=== PATIENT | female | born 1950 | race African-American/Black ===

== ENCOUNTER 2023-09-29 11:22 | Emergency (ER) | payer OTHER ==
[~2023-09-29] VITALS: Ht 167.6 cm; Wt 90.0 kg
[2023-09-29 11:24] VITALS: O2SAT 99
[2023-09-29 11:44] LABS: BASOPHILS % 0.6 % (0.0-2.0); EOSINOPHILS % 0.7 % (0.0-5.0); HEMOGLOBIN. 13.1 g/dL (12.0-16.0); LYMPHOCYTES % 23.6 % (20.0-50.0); MEAN CORPUSCULAR HEMOGLOBIN 30.3 pg (28.0-32.0); MEAN CORPUSCULAR HGB CONC 32.8 g/dL (31.0-37.0); MEAN CORPUSCULAR VOLUME 92.4 fL (81.0-99.0); MONOCYTES % 7.8 % (2.0-8.0); NEUTROPHILS % 67.3 % (40.0-76.0); PLATELET 372 x1000/uL (130-400); RED BLOOD CELL COUNT 4.32 mill/uL (4.2-5.4); RED CELL DISTRIBUTION WIDTH 13.9 % (11.6-14.6); WHITE BLOOD COUNT 8.3 x1000/uL (4.5-11.0)
[2023-09-29] MEDS ORDERED: SODIUM CHLORIDE 0.9% 1,000 ML IV ONE (11:45)
[2023-09-29 12:36] LABS: ALANINE AMINOTRANSFERASE 22 IU/L (13-61); BILIRUBIN TOTAL 0.3 mg/dL (0.1-1.0); CALCIUM 10.3 mg/dL (8.5-10.1); CARBON DIOXIDE 29 mEq/L (21-32); CHLORIDE 105 mEq/L (98-107); CREATININE 1.1 mg/dL (0.6-1.3); GLUCOSE 195 mg/dL (70-105); INDEX HEMOLYSI 1 (1-3); INDEX ICTERIC 1 (1-4); INDEX LIPEMIC 1 (1-3); NT PRO B-TYPE NATRIURETIC PEP 511 pg/mL (5-125); PROTEIN TOTAL 7.9 g/dL (6.0-8.3); SODIUM 140 mEq/L (136-145); UREA NITROGEN BLOOD 16 mg/dL (7-21)
[2023-09-29 12:53] LABS: ASPARTATE AMINOTRANSFERASE 9 IU/L (15-37); TROPONIN I HIGH SENSITIVITY 14 ng/L (<54)
[2023-09-29 18:12] VITALS: BP 164/80; PULSE 82; RESP 16; TEMP 98.3
== END 2023-09-29 18:54 | disposition short-term general hospital (02) ==
LOC: ER 13:05 → CANBEDREQ 18:17 → ER 18:54
DX: R55 Syncope and collapse (principal); R42 Dizziness and giddiness; E11.9 Type 2 diabetes mellitus without complications; I10 Essential (primary) hypertension; Z20.822 Contact with and (suspected) exposure to COVID-19
CPT/HCPCS: 99285; 96360; 71045; 87426; 80053; 82962; 83880; 85025; 84484; 36415; 93005; J7030; C9803